=== PATIENT | female | born 1950 | race Caucasian/White ===

== ENCOUNTER 2017-08-17 12:36 | Inpatient (IN) ==
--- NOTE | 2017-08-17 13:06 | Emergency Department Note ---
Disposition Clinical Impression: Depression Qualifiers: Depression Type: unspecified Qualified Code(s): F32.9 - Major depressive disorder, single episode, unspecified Disposition: Admitted As Inpatient Condition: Good Referrals: NONE,PCP [Primary Care Provider] - Forms: ED Satisfaction Letter Time of Disposition: 14:45 Psych HPI - General Chief Complaint: ED Psychiatric Symptoms Stated Complaint: psych eval Time Seen by Provider: 08/17/17 12:52 Source: patient, EMS Mode of arrival: EMS Limitations: no limitations Nursing Notes Reviewed: Yes Vital Signs Reviewed: Yes - History of Present Illness HPI Narrative: Patient was sent by the counseling Center for behavioral consultation. She was pink slipped by the counseling center. The patient has no physical complaints. The counseling center states that she is severely depressed and not able to care for herself Pt complaint: feels depressed Onset (ago): week(s) Duration: constant History of similar episodes: Yes Improves with: none Worsens with: none Context: new medication(s) Alleged intoxication: No Associated Psychiatric Symptoms: depression Associated symptoms: Reports: denies other symptoms Traumatic symptoms: denies traumatic injury - Related Data Allergies Allergy/AdvReac Type Severity Reaction Status Date / Time No Known Allergies Allergy Verified 08/17/17 12:42 All systems ED: reviewed and negative except as stated. Constitutional: Reports: as per HPI Eyes: Reports: as per HPI ENT ED: Reports: as per HPI Cardiovascular: Reports: as per HPI Respiratory: Reports: as per HPI Gastrointestinal: Reports: as per HPI Genitourinary: Reports: as per HPI Musculoskeletal: Reports: as per HPI Integumentary: Reports: as per HPI Neurological: Reports: as per HPI Psychiatric: Reports: depression Endocrine: Reports: as per HPI Hematological/Lymphatic: Reports: as per HPI Allergic/Immunologic: Reports: as per HPI Past Medical History - Past Medical History Source: patient Medical history: Reports: cancer Psychiatric history: Reports: anxiety, bipolar, depression - Social History Smoking Status: Former smoker Smokeless Tobacco Status: No Alcohol use: Reports: none Drug use: Reports: none Physical Exam - General Limitations: no limitations General appearance: alert - Head Head exam: atraumatic - Eye Eye exam: Present: normal appearance - ENT ENT exam: normal exam - Neck Neck exam: Present: normal inspection - Chest Chest inspection: Present: normal inspection, symmetric chest wall rise - Respiratory Respiratory exam: Present: normal lung sounds bilaterally - Cardiovascular Cardiovascular exam: Present: regular rate, normal rhythm, normal heart sounds - Rectal Exam Rectal exam: Present: deferred - Extremities Exam Extremities exam: Present: normal inspection - Neurological Exam Neurological exam: Present: alert, oriented X3, CN II-XII intact - Psychiatric Psychiatric exam: Present: normal affect, normal mood - Skin Skin exam: Present: warm, dry, intact Course Course Narrative: The patient presents after being pink slipped by the counseling center. She appears in no acute distress on exam Vital Signs Temperature 98.3 F 08/17/17 12:36 Pulse Rate 88 08/17/17 12:36 Respiratory Rate 16 08/17/17 12:36 Blood Pressure 149/99 08/17/17 12:36 O2 Sat by Pulse Oximetry 93 08/17/17 12:36 Temperature 98.3 F 08/17/17 12:36 Pulse Rate 88 08/17/17 12:36 Respiratory Rate 16 08/17/17 12:36 Blood Pressure 149/99 08/17/17 12:36 O2 Sat by Pulse Oximetry 93 08/17/17 12:36 Oxygen Delivery Oxygen Delivery Room Air Psych - Lab Data Lab results reviewed: Yes I reviewed the patient's lab results. Result diagrams: 08/17/17 13:04 08/17/17 13:04 Lab Results 08/17/17 08/17/17 08/17/17 Range/Units 13:04 13:04 14:00 WBC 3.2 L (4.3-11.1) K/mcL RBC 4.22 (3.82-4.97) M/mcL Hgb 12.5 (11.5-15.4) g/dL Hct 37.7 (35.3-44.9) % MCV 89.3 (83.0-100.0) fL MCH 29.6 (28.0-33.3) pg MCHC 33.2 (31.6-35.5) g/dL RDW 12.6 (11.5-14.5) % Plt Count 234 (140-400) K/mcL MPV 8.4 L (9.4-12.4) fL Immature Gran % 1.3 (0-4) % Seg Neutrophils % 70.4 % Lymphocytes % 15.7 % Monocytes % 8.8 % Eosinophils % 2.5 % Basophils % 1.3 % Neutrophils # 2.3 (1.6-8.9) K/mcL Lymphocytes # 0.5 L (0.6-4.6) K/mcL Monocytes # 0.3 (0.0-1.3) K/mcL Eosinophils # 0.1 (0.0-0.6) K/mcL Basophils # 0.0 (0.0-0.2) K/mcL Sodium 138 (136-145) mEq/L Potassium 4.5 (3.5-5.1) mEq/L Chloride 106 (98-107) mEq/L Carbon Dioxide 25 (23-29) mEq/L BUN 20 (8-23) mg/dL Creatinine 0.91 (0.60-1.20) mg/dL Est GFR ( Amer) > 60 (> 60) Est GFR (Non-Af Amer) > 60 (> 60) BUN/Creatinine Ratio 22 (6-26) Glucose 110 H (70-105) mg/dL Calculated Osmolality 289 (280-300) Calcium 9.9 (8.6-10.3) mg/dL Total Bilirubin 0.5 (0.3-1.0) mg/dL Direct Bilirubin 0.1 (0.0-0.2) mg/dL Indirect Bilirubin 0.4 (0.0-1.2) mg/dL AST 23 (13-39) Units/L ALT 34 (7-52) Units/L Alkaline Phosphatase 72 (34-104) Units/L Serum Total Protein 6.8 (6.4-8.9) g/dL Albumin 4.5 (3.5-5.7) g/dL Globulin 2.3 L (2.4-3.5) g/dL Albumin/Globulin Ratio 2.0 (1.1-2.2) Salicylates < 5.0 L (15.0-30.0) mg/dL Urine Opiates Screen Negative (Gdftxp=780) ng/mL Acetaminophen < 1.0 L (10-30) mcg/mL Ur Barbiturates Screen Negative (Xrogkk=266) ng/mL Ur Phencyclidine Scrn Negative (Cutoff=25) ng/mL Ur Amphetamines Screen Positive H (Rpafeg=2948) ng/mL U Benzodiazepines Scrn Positive H (Ftwsiu=777) ng/mL Urine Cocaine Screen Negative (Cutoff= 300) ng/mL U Marijuana (THC) Screen Negative (Cutoff = 50) ng/mL Ethyl Alcohol < 10 (0-10) mg/dL Psychiatric Medical Clearance - Medical Clearance Checklist Medical History: No Social History Section defined Current Vitals: Last Vital Signs Temp 98.3 F 08/17/17 12:36 Pulse 88 08/17/17 12:36 Resp 16 08/17/17 12:36 BP 149/99 08/17/17 12:36 Pulse Ox 93 08/17/17 12:36 Psychiatric Lab Panel: Drug Levels and Toxicity 08/17/17 08/17/17 13:04 14:00 Urine Opiates Screen Negative Acetaminophen < 1.0 L Ur Barbiturates Screen Negative Ur Phencyclidine Scrn Negative Ur Amphetamines Screen Positive H U Benzodiazepines Scrn Positive H Urine Cocaine Screen Negative U Marijuana (THC) Screen Negative Ethyl Alcohol < 10 Abnormal Labs: Abnormal lab results WBC 3.2 K/mcL (4.3-11.1) L 08/17/17 13:04 MPV 8.4 fL (9.4-12.4) L 08/17/17 13:04 Lymphocytes # 0.5 K/mcL (0.6-4.6) L 08/17/17 13:04 Glucose 110 mg/dL (70-105) H 08/17/17 13:04 Globulin 2.3 g/dL (2.4-3.5) L 08/17/17 13:04 Salicylates < 5.0 mg/dL (15.0-30.0) L 08/17/17 13:04 Acetaminophen < 1.0 mcg/mL (10-30) L 08/17/17 13:04 Ur Amphetamines Screen Positive ng/mL (Hngfzo=4062) H 08/17/17 14:00 U Benzodiazepines Scrn Positive ng/mL (Gqbxwe=654) H 08/17/17 14:00 Statement of Medical Clearance: I have evaluated the patient, reviewed diagnostic information, and certify that the patient's medical condition is sufficiently stable that transfer to the psychiatric unit does not pose a significant risk of deterioration.
[2017-08-17 13:15] LABS: Basophils % 1.3 %; Eosinophils # 0.1 K/mcL (0.0-0.6); Eosinophils % 2.5 %; Hematocrit 37.7 % (35.3-44.9); Hemoglobin 12.5 g/dL (11.5-15.4); Immature Granulocytes % 1.3 % (0-4); Lymphocytes # 0.5 K/mcL (0.6-4.6); Lymphocytes % 15.7 %; Mean Corpuscular HGB Conc 33.2 g/dL (31.6-35.5); Mean Corpuscular Hemoglobin 29.6 pg (28.0-33.3); Mean Corpuscular Volume 89.3 fL (83.0-100.0); Mean Platelet Volume 8.4 fL (9.4-12.4); Monocytes # 0.3 K/mcL (0.0-1.3); Monocytes % 8.8 %; Neutrophils # 2.3 K/mcL (1.6-8.9); Platelet Count 234 K/mcL (140-400); Red Blood Count 4.22 M/mcL (3.82-4.97); Red Cell Distribution Width 12.6 % (11.5-14.5); Segmented Neutrophils % 70.4 %
[2017-08-17 13:41] LABS: Alanine Aminotransferase 34 Units/L (7-52); Albumin 4.5 g/dL (3.5-5.7); Alkaline Phosphatase 72 Units/L (34-104); Aspartate Amino Transferase 23 Units/L (13-39); BUN/Creatinine Ratio 22 (6-26); Bilirubin,Direct 0.1 mg/dL (0.0-0.2); Bilirubin,Indirect 0.4 mg/dL (0.0-1.2); Bilirubin,Total 0.5 mg/dL (0.3-1.0); Blood Urea Nitrogen 20 mg/dL (8-23); Calcium 9.9 mg/dL (8.6-10.3); Carbon Dioxide 25 mEq/L (23-29); Chloride 106 mEq/L (98-107); Globulin 2.3 g/dL (2.4-3.5); Glucose 110 mg/dL (70-105); Osmolality,Calculated 289 (280-300); Potassium 4.5 mEq/L (3.5-5.1); Sodium 138 mEq/L (136-145); Total Protein 6.8 g/dL (6.4-8.9); eGFR For African Americans > 60 (> 60); eGFR For Non-African Americans > 60 (> 60)
[2017-08-17 13:47] LABS: Acetaminophen < 1.0 mcg/mL (10-30); Ethanol < 10 mg/dL (0-10); Salicylate < 5.0 mg/dL (15.0-30.0)
[2017-08-17 14:16] LABS: Amphetamine Screen,Urine Positive ng/mL (Cutoff=1000); Barbiturate Screen,Urine Negative ng/mL (Cutoff=200); Benzodiazepines Screen,Urine Positive ng/mL (Cutoff=200); Cannabinoid Screen,Urine Negative ng/mL (Cutoff = 50); Cocaine Screen,Urine Negative ng/mL (Cutoff= 300); Opiate Screen,Urine Negative ng/mL (Cutoff=300); Phencyclidine Screen,Urine Negative ng/mL (Cutoff=25)
[2017-08-17] MEDS ORDERED: ALPRAZolam 0.5 MG TABLET PO ONE (14:53)
[2017-08-17] MEDS ORDERED: Famotidine 20 MG TABLET PO PRN (16:58)
[2017-08-17] MEDS ORDERED: hydrOXYzine pamoate 25 MG CAPSULE PO PRN (17:03)
[2017-08-17] MEDS ORDERED: Mag Hydrox/Al Hydrox/Simeth 30 ML UDC PO PRN (17:03)
[2017-08-17] MEDS ORDERED: Ibuprofen 400 MG TABLET PO PRN (17:03)
[2017-08-17] MEDS ORDERED: Haloperidol Lactate 5 MG/ML VIAL IM PRN (17:03)
[2017-08-17] MEDS ORDERED: MOM Conc 10 ML UD.LIQ PO PRN (17:03)
[2017-08-17] MEDS ORDERED: *HR* LORazepam 2 MG/ML VIAL IM PRN (17:03)
[2017-08-17] MEDS ORDERED: *HR* LORazepam 1 MG TABLET PO PRN (17:03)
[2017-08-17] MEDS: ALPRAZolam 1 MG TABLET PO SCH ×2 (17:22→21:17)
[2017-08-17] MEDS: lamoTRIgine 25 MG TABLET PO SCH (21:17)
[2017-08-18] MEDS: ALPRAZolam 1 MG TABLET PO SCH ×3 (08:30→21:22)
[2017-08-18] MEDS: (Dextroamphetamine/Amphetamine [Adderall 10 Mg Tablet PO SCH (08:31)
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
[2017-08-18] MEDS ORDERED: lamoTRIgine 25 MG TABLET PO SCH (21:00)
[2017-08-18] MEDS: lamoTRIgine 25 MG TABLET PO SCH (21:22)
[2017-08-19] MEDS: ALPRAZolam 1 MG TABLET PO SCH (08:09)
[2017-08-19] MEDS: (Dextroamphetamine/Amphetamine [Adderall 10 Mg Tablet PO SCH (08:32)
[2017-08-19 09:05] VITALS: BP 126/78
--- NOTE | 2017-08-19 10:15 | Psychiatry Progress Note ---
Date of Encounter: 08/19/17 Time of Encounter: 09:30 Review of Systems Psychiatric: Reports: depression, anxiety, abnormal sleep pattern, anhedonia, confusion, difficulty concentrating, hopelessness Results - Vital Signs Vital Signs: Temp Pulse Resp BP Pulse Ox 97.4 F L 78 16 126/78 93 08/19/17 09:00 08/19/17 09:00 08/19/17 09:00 08/19/17 09:00 08/17/17 12:36 Assessment and Plan (1) Bipolar 2 disorder Current visit: Yes Status: Acute Risks, benefits, side effects, alternatives discussed w/pt: Yes Patient agreeable to treatment: Yes (2) PTSD (post-traumatic stress disorder) Current visit: Yes Status: Chronic Risks, benefits, side effects, alternatives discussed w/pt: Yes Patient agreeable to treatment: Yes Consult Discharge Plan - Plan Referrals: [facility] [Outside] - 09/14/17 2:30 pm (The above appointment is with Dr. Muhammad for outpatient psychiatric assessment and medication management services. Please arrive 10 minutes early to all appointments to complete the check-in process. Please bring your insurance card (or [facility] award letter) and photo ID. If you are unable to keep any scheduled appointment, 24 hour business notice of cancellation is expected. The above appointment(s) reflects first availability. You may contact the office regularly to check for cancellations that may allow you to be seen sooner. ) [facility] [Outside]
--- NOTE | 2017-08-19 10:17 | Discharge Summary ---
Date of Encounter: 08/19/17 Time of Encounter: 09:30 Diagnosis - Discharge Diagnosis (1) Bipolar 2 disorder Status: Acute Comments: patient showed some improvement, she is not danger to self/others and wants to do medication changes out patient. (2) PTSD (post-traumatic stress disorder) Status: Chronic Comments: patient needs to continue counselling Medications - Discharge Medications Prescriptions: lamoTRIgine [Lamictal] 100 mg PO HS #30 tablet Dextroamphetamine/Amphetamine [Adderall 10 mg Tablet] 10 mg PO DAILY 08/17/17 [ History] Duloxetine HCl [Cymbalta] 120 mg PO DAILY 08/17/17 [History] Escitalopram [Lexapro] 10 mg PO DAILY 08/17/17 [History] Ranitidine HCl [Acid Surgeon Chief] 150 mg PO BID PRN 08/17/17 [History] lamoTRIgine [Lamictal] 100 mg PO HS #30 tablet 08/19/17 [Rx] 3 Allergy/AdvReac Type Severity Reaction Status Date / Time No Known Allergies Allergy Verified 08/17/17 12:42 Provider Date of admission: 08/17/17 15:02 Primary care physician: PCP NONE Assessment and Plan - Patient/Caregiver Discharge Instructions Activity: resume usual activities as tolerated Diet: regular diet - Follow up Plan Follow up with: [facility] [Outside] - 09/14/17 2:30 pm (The above appointment is with Dr. Muhammad for outpatient psychiatric assessment and medication management services. Please arrive 10 minutes early to all appointments to complete the check-in process. Please bring your insurance card (or [facility] award letter) and photo ID. If you are unable to keep any scheduled appointment, 24 hour business notice of cancellation is expected. The above appointment(s) reflects first availability. You may contact the office regularly to check for cancellations that may allow you to be seen sooner. ) [facility] [Outside] Overall status at discharge: Stable Disposition: Home, Self-Care Hospital Course Hospital course: Ms. Davis is a 67 year old female who was admitted after she saw Dr Muhammad as out patient and complained of worsening of depression and thoughts that her cancer will return , she was more isolative and increased lack of motivation , she denies suicidal ideation. During her course of inpatient hospitalization, she has been cooperative and compliant, detail history taken and medications taken past and present were d/w her , she was stable on medications till her diagnosis of cancer , then treatment and 2 surgeries one after other, she also has PTSD and in counselling , will all the support and counselling and medication changed she was not getting better. at present she is more verbal and has been active on unit, compliant with unit miliue and giving feedback , she has realized that she is people person and had been active in past and needs to do things she used to do. changes done are Increased Lamictal 100 mg , plan to increase upto 200 mg out patient. Decrease Xanax to 1 mg bid , plan to slowly taper and discontinue in 3-4 weels . Continue Cymbalta as started 2-3 weeks ago and continue escitalopram. seroquel discontinued , she has been sleeping well . continue adderall will recomend to give xr 30 mg . at present plan explained to patient and education given, patient refused to stay inpatient and wants to continue out patient as she is not in danger to self or others and has shown some improvement will discharge with her family. - Time Spent with Patient Total time spent providing and/or coordinating discharge services: Greater than 30 minutes Quality - Multiple Antipsychotics Patient discharged on 2 or more antipsychotic medications: No Procedures - Procedures Procedures: Medication Management, Crisis Stabilization, Supportive Therapy, Group Therapy, Psychoeducational Therapy Mental Status Exam - Mental Status Exam Patient orientation: Yes Person, Yes Time, Yes Place Level of alertness: Alert Patient appearance: Appropriate Behavior: calm, cooperative Psychomotor activity: Normal Eye contact: Maintains Eye Contact Mood description: Euthymic/stable Affect description: congruent with mood Speech pattern: Normal rate, Coherent Speech Volume: Normal Thought process: Intact Thought Content: Yes Intact Judgment: Good Insight: Full
[2017-08-19] MEDS ORDERED: lamoTRIgine 100 MG TABLET PO SCH (21:00)
[2017-08-19] MEDS ORDERED: ALPRAZolam 1 MG TABLET PO SCH (21:00)
== END 2017-08-19 12:20 | disposition home or self-care (01) | DRG 885 ==
LOC: EMEROO 12:36 → 1ANU 15:02
PROVIDERS: ADMIT Psychiatry & Neurology Psychiatry; ATTEND Psychiatry & Neurology Psychiatry